=== PATIENT | female | born 1950 | race Caucasian/White ===

== ENCOUNTER 2017-07-20 15:58 | Inpatient (IN) | payer SELFPAY ==
[~2017-07-20] VITALS: Ht 152.4 cm; Wt 37.9 kg
[~2017-07-20 15:58] MED LIST: CALC600T44 PO; METH27 PO; OXYC40TA20; RALO1TAB13 PO; VITA20003 OR; [UNRECOGNIZED DRUG - CODE]
[2017-07-20 16:25] VITALS: BP 170/101; PULSE 98; RESP 20; TEMP 98.6; O2SAT 89
--- NOTE | 2017-07-20 16:29 | PD ---
HPI Chief Complaint: Respiratory Symptoms Time Seen by Provider: 16:14 Travel History International Travel<30 days: Yes Contact w/Intl Traveler<30days: Yes Traveled to known affect area: Yes History of Present Illness HPI This 66-year-old female is complaining of shortness of breath and edema. She says that for the past 2 weeks she has developed edema in her legs extending up into her abdomen. She says she's had some spells where she gets some tingling in her hands and then they turned blue. 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 She is currently confined to a wheelchair because of confusion of the bones of her knees. She says this bone disease showed up around 2006. She was evaluated at [facility] but says it was not able to do anything for her. She does smoke cigarettes. PFSH Past Medical History Arthritis: Yes Heart Rhythm Problems: Yes Cancer: No Cardiovascular Problems: No High Cholesterol: No Chest Pain: No Cerebrovascular Accident: No Endocrine: No Fibromyalgia: Yes Genitourinary: No Hepatitis: Yes (HEP C) Immune Disorder: No Musculoskeletal: Yes (SEVERE OSTEOPOROSIS/SCOLIOSIS/BONE DENSITY DISORDER) Neurologic: No Psychiatric: No Reproductive: No Respiratory: No Immunizations Current: Yes Migraines: No Seizures: Yes Menopausal: Yes Past Surgical History Abdominal Surgery: Yes (LIVER BIOPSY AND ERCP) Cardiac Surgery: No Ear Surgery: No Endocrine Surgery: No Eye Surgery: No Genitourinary Surgery: No Gynecologic Surgery: No Oral Surgery: No Thoracic Surgery: No Other Surgery: Yes (Procedures: Liver Biopsy & ERCP) Social History Alcohol Use: No Tobacco Use: Yes (1.5 ppd) Substance Use: No Allergies-Medications (Allergen,Severity, Reaction): Coded Allergies: cephalexin (Unverified Allergy, Severe, 06/21/17) acetaminophen (Unverified Adverse Reaction, Unknown, DOES NOT TAKE TYLENOL DUE TO HEPATITIS, 06/21/17) Reported Meds & Prescriptions Reported Meds & Active Scripts Active Reported Prolia Inj (Denosumab) 60 Mg/Ml Inj 60 Mg SQ 6 MONTHS Xtampza ER (Oxycodone) 27 Mg Cap 27 Mg PO TID Review of Systems General / Constitutional: No: Fever, Chills Eyes: No: Diploplia, Blurred Vision HENT: No: Headaches, Vertigo Cardiovascular: Positive: Edema, No: Chest Pain or Discomfort, Palpitations Respiratory: Positive: Shortness of Breath, No: Cough Gastrointestinal: No: Nausea, Vomiting Genitourinary: No: Urgency, Frequency Skin: No Rash, No Itching Neurologic: Positive: Weakness Endocrine: No: Heat Intolerance Hematologic/Lymphatic: No: Easy Bruising Physical Exam Narrative GENERAL: Very thin female. On arrival her O2 sat is 88% SKIN: Focused skin assessment warm/dry. HEAD: Atraumatic. Normocephalic. EYES: Pupils equal and round. No scleral icterus. No injection or drainage. ENT: No nasal bleeding or discharge. Mucous membranes pink and moist. NECK: Trachea midline. No JVD. CARDIOVASCULAR: Regular rate and rhythm. No murmur appreciated. RESPIRATORY: There is accessory muscle use. There are bibasilar rales GASTROINTESTINAL: Abdomen soft, non-tender, nondistended. Hepatic and splenic margins not palpable. MUSCULOSKELETAL: There are deformities of both arms. There are flexion deformities of the knees. There is edema of both legs extending up to the abdomen NEUROLOGICAL: Awake and alert. No obvious cranial nerve deficits. Motor grossly within normal limits. Normal speech. PSYCHIATRIC: Appropriate mood and affect; insight and judgment normal. Data Data Last Documented VS Vital Signs Date Time Temp Pulse Resp B/P (MAP) Pulse Ox O2 Delivery O2 Flow Rate FiO2 07/20/17 20:38 97.9 80 18 147/85 (105) 97 Nasal Cannula 2.00 Orders Orders Electrocardiogram (07/20/17 16:26) Complete Blood Count With Diff (07/20/17 16:26) Comprehensive Metabolic Panel (07/20/17 16:26) Troponin I (07/20/17 16:) B-Type Natriuretic Peptide (07/20/17 16:26) Prothrombin Time / Inr (Pt) (07/20/17 16:26) Act Partial Throm Time (Ptt) (07/20/17 16:26) Urinalysis - C+S If Indicated (07/20/17 16:26) D-Dimer (07/20/17 16:26) Magnesium (Mg) (07/20/17 16:26) Thyroid Stimulating Hormone (07/20/17 16:26) Chest, Single Ap (07/20/17 16:26) Bladder Scan PRN (07/20/17 16:33) Furosemide Inj (Lasix Inj) (07/20/17 17:30) Ct Pulmonary Angiogram (07/20/17 18:27) Urine Culture (07/20/17 18:50) Iohexol 350 Inj (Omnipaque 350 Inj) (07/20/17 20:34) Urinary Catheter Insert/Apply (07/20/17 21:28) Labs Laboratory Tests Test 07/20/17 16:30 07/20/17 17:10 07/20/17 18:50 White Blood Count 7.1 TH/MM3 Red Blood Count 4.54 MIL/MM3 Hemoglobin 10.9 GM/DL Hematocrit 34.9 % Mean Corpuscular Volume 76.9 FL Mean Corpuscular Hemoglobin 24.1 PG Mean Corpuscular Hemoglobin Concent 31.3 % Red Cell Distribution Width 18.8 % Platelet Count 224 TH/MM3 Mean Platelet Volume 7.9 FL Neutrophils (%) (Auto) 77.1 % Lymphocytes (%) (Auto) 12.5 % Monocytes (%) (Auto) 6.8 % Eosinophils (%) (Auto) 0.9 % Basophils (%) (Auto) 2.7 % Neutrophils # (Auto) 5.4 TH/MM3 Lymphocytes # (Auto) 0.9 TH/MM3 Monocytes # (Auto) 0.5 TH/MM3 Eosinophils # (Auto) 0.1 TH/MM3 Basophils # (Auto) 0.2 TH/MM3 CBC Comment AUTO DIFF Differential Comment AUTO DIFF CONFIRMED Target Cells 1+ Ovalocytes 1+ Stomatocytes 1+ Blood Urea Nitrogen 24 MG/DL Creatinine 0.90 MG/DL Random Glucose 93 MG/DL Total Protein 6.9 GM/DL Albumin 3.4 GM/DL Calcium Level 8.1 MG/DL Magnesium Level 2.2 MG/DL Alkaline Phosphatase 81 U/L Aspartate Amino Transf (AST/SGOT) 23 U/L Alanine Aminotransferase (ALT/SGPT) 17 U/L Total Bilirubin 0.3 MG/DL Sodium Level 134 MEQ/L Potassium Level 4.4 MEQ/L Chloride Level 96 MEQ/L Carbon Dioxide Level 32.4 MEQ/L Anion Gap 6 MEQ/L Estimat Glomerular Filtration Rate 63 ML/MIN Troponin I 0.02 NG/ML B-Type Natriuretic Peptide 1773 PG/ML Thyroid Stimulating Hormone 3rd Gen 3.200 uIU/ML Prothrombin Time 12.0 SEC Prothromb Time International Ratio 1.1 RATIO Activated Partial Thromboplast Time 25.3 SEC D-Dimer Quantitative (PE/DVT) 1.36 MG/L FEU Urine Color YELLOW Urine Turbidity CLEAR Urine pH 6.0 Urine Specific [place] 1.008 Urine Protein NEG mg/dL Urine Glucose (UA) NEG mg/dL Urine Ketones NEG mg/dL Urine Occult Blood NEG Urine Nitrite POS Urine Bilirubin NEG Urine Leukocyte Esterase NEG Urine RBC 0-3 /hpf Urine WBC 0-2 /hpf Urine Squamous Epithelial Cells 0-5 /hpf Urine Bacteria MANY /hpf Microscopic Urinalysis Comment CULTURE INDICATED MDM Medical Decision Making Medical Screen Exam Complete: Yes Emergency Medical Condition: Yes Medical Record Reviewed: Yes Differential Diagnosis Differential includes COPD, CHF, anasarca, cirrhosis, nephrotic syndrome Narrative Course Chest x-ray shows cardiomegaly and evidence of congestive failure. BNP is elevated at 1700. Albumin is 3.4. A d-dimer was ordered and is elevated so a DT a has been done. CTA is negative for pulmonary embolus is moderate emphysema with suspected pulmonary hypertension, bilateral pleural effusions and left ventricular hypertrophy with coronary artery calcification. Patient has been given Lasix 40 of Lasix and had a brisk diuresis. He does have a lot of healthy getting up and down to urinate and I have requested Jay catheter so we can monitor her output. This lady has onset of congestive failure of uncertain etiology Diagnosis Primary Impression: Congestive heart failure Qualified Codes: I50.9 - Heart failure, unspecified Admitting Information Admitting Physician Requests: Admit Hamilton Woodard MD Jul 20, 2017 16:29
[2017-07-20 16:47] LABS: AUTOMATED NEUTROPHIL # 5.4 TH/MM3 (1.8-7.7); BASOPHIL # 0.2 TH/MM3 (0-0.2); BASOPHIL % 2.7 % (0.0-2.0); EOSINOPHIL # 0.1 TH/MM3 (0-0.4); EOSINOPHIL % 0.9 % (0.0-4.0); HEMATOCRIT 34.9 % (35.0-46.0); LYMPH % 12.5 % (9.0-44.0); LYMPHOCYTE # 0.9 TH/MM3 (1.0-4.8); MEAN CELL VOLUME 76.9 FL (80.0-100.0); MEAN CORPUSCULAR HEMOGLOBIN 24.1 PG (27.0-34.0); MEAN CORPUSCULAR HGB CONC 31.3 % (32.0-36.0); MONO % 6.8 % (0.0-8.0); NEUT % 77.1 % (16.0-70.0); PLATELET COUNT 224 TH/MM3 (150-450); RED BLOOD COUNT 4.54 MIL/MM3 (4.00-5.30); RED CELL DISTRIBUTION WIDTH 18.8 % (11.6-17.2); WHITE BLOOD COUNT 7.1 TH/MM3 (4.0-11.0)
[2017-07-20 16:50] LABS: HEMO FLAGS AUTO DIFF
[2017-07-20 16:54] LABS: CHLORIDE 96 MEQ/L (98-107); POTASSIUM 4.4 MEQ/L (3.5-5.1); SODIUM (NA) 134 MEQ/L (136-145)
--- NOTE | 2017-07-20 16:54 | RADRPT ---
EXAM DATE/TIME: 07/20/2017 16:40 [facility] COMPARISON: No previous studies available for comparison. INDICATIONS : Short of breath. MEDICAL HISTORY : Scoliosis. SURGICAL HISTORY : None. ENCOUNTER: Initial ACUITY: 4 - 6 days PAIN SCORE: 0/10 LOCATION: Bilateral chest FINDINGS: Heart is enlarged mild interstitial edema and bibasilar partial changes worse in the right. No pleur al effusion. No pneumothorax. The portion of the bony skeleton visualized is unremarkable. CONCLUSION: Mild congestive failure bibasilar clinical changes. No pleural effusion. Cody Cardona MD FACR on July 20, 2017 at 16:52 Board Certified Radiologist. This report was verified electronically.
[2017-07-20 16:58] LABS: ANION GAP 6 MEQ/L (5-15); BICARBONATE 32.4 MEQ/L (21.0-32.0); BLOOD UREA NITROGEN 24 MG/DL (7-18); MAGNESIUM 2.2 MG/DL (1.5-2.5)
[2017-07-20 17:01] LABS: ALT (GPT) 17 U/L (10-53); AST (GOT) 23 U/L (15-37); GLOMERULAR FILTRATION RATE 63 ML/MIN (>89)
[2017-07-20 17:03] LABS: TOTAL BILIRUBIN ADULT 0.3 MG/DL (0.2-1.0)
[2017-07-20 17:04] LABS: ALKALINE PHOSPHATASE 81 U/L (45-117)
[2017-07-20 17:25] VITALS: BP 151/94; PULSE 93; RESP 20; O2SAT 94
[2017-07-20 17:27] LABS: OVALOCYTES 1+ (NORMAL); STOMATOCYTES 1+ (NORMAL); TARGET CELLS 1+ (NORMAL)
[2017-07-20 17:28] LABS: SCAN/DIFF AUTO DIFF CONFIRMED
[2017-07-20] MEDS ORDERED: FUROSEMIDE 40 MG/4 ML VIAL IV PUSH ONE (17:30)
[2017-07-20 18:01] LABS: APTT (PATIENT) 25.3 SEC (24.3-30.1); INTERNATIONAL NORMALIZED RATIO 1.1 RATIO
[2017-07-20] MEDS ORDERED: OXYC1CAP PO (18:01)
[2017-07-20] MEDS ORDERED: DENO60P SQ (18:01)
[2017-07-20 19:07] LABS: BLOOD, URINE NEG (NEG); GLUCOSE,URINE NEG (NEG); KETONE, URINE NEG (NEG); NITRITE,URINE POS (NEG)
[2017-07-20 19:14] LABS: URINE COLOR YELLOW (YELLW/STRAW)
[2017-07-20 19:15] LABS: BACTERIA, URINE MANY /hpf; COMMENT (UR) CULTURE INDICATED; CULTURE IF INDICATED CULTURE INDICATED; RBC, URINE 0-3 /hpf (0-3); SQUAMOUS EPITHELIAL CELL URINE 0-5 /hpf (0-5); WBC, URINE 0-2 /hpf (0-5)
[2017-07-20 19:27] VITALS: BP 184/107; PULSE 90; RESP 18; O2SAT 100
[2017-07-20] MEDS ORDERED: IOHEXOL 350 MG/ML 10 ML VIAL (for RAD DIAG) IVCONTRAST ONE (20:34)
[2017-07-20 20:38] VITALS: BP 147/85; PULSE 80; RESP 18; TEMP 97.9; O2SAT 97
--- NOTE | 2017-07-20 20:51 | RADRPT ---
EXAM DATE/TIME: 07/20/2017 20:23 [facility] COMPARISON: No previous studies available for comparison. INDICATIONS : Shortness of breath with elevated D-dimer. IV CONTRAST: 60 cc Omnipaque 350 (iohexol) IV RADIATION DOSE: 5.42 CTDIvol (mGy) MEDICAL HISTORY : Hepatitis C. Osteoporosis. SURGICAL HISTORY : None. ENCOUNTER: Initial ACUITY: 1 day PAIN SCALE: 0/10 LOCATION: chest TECHNIQUE: Volumetric scanning of the chest was performed using a pulmonary embolism protocol MIP images were re constructed. Using automated exposure control and adjustment of the mA and/or kV according to patien t size, radiation dose was kept as low as reasonably achievable to obtain optimal diagnostic quality images. DICOM format image data is available electronically for review and comparison. Follow-up recommendations for detected pulmonary nodules are based at a minimum on nodule size and pa tient risk factors according to Fleischner Society Guidelines. FINDINGS: There is no pulmonary embolus. Main pulmonary artery is distended, measures approximately 3.9 cm. Left ventricular hypertrophy noted. Coronary artery calcification seen focally of the right coronary and proximal LAD. Moderate emphysema. Moderate right and [id number] left pleural effusions are present with mild dependent/compressive atelectasis of the bases. CONCLUSION: 1. No pulmonary embolus. 2. Moderate emphysema with suspected pulmonary hypertension. The central pulmonary arteries are diste nded. 3. Bilateral pleural effusions. 4. Left ventricular hypertrophy. Coronary artery calcification. Ross Arias MD on July 20, 2017 at 20:47 Board Certified Radiologist. This report was verified electronically.
[2017-07-20 21:45] VITALS: BP 132/82; PULSE 78; RESP 17; O2SAT 96
[2017-07-20] MEDS ORDERED: NALOXONE HCL 0.4 MG/ML AMP IV PUSH PRN (21:45)
[2017-07-20] MEDS ORDERED: SODIUM CHLORIDE 0.9% FLUSH 10 ML FLUSH IV FLUSH PRN (21:45)
[2017-07-20] MEDS ORDERED: NICOTINE 21 MG/24 HR PATCH T-DERMAL ONE (21:45)
[2017-07-20] MEDS ORDERED: OXYC1CAP8 PO (22:43)
[2017-07-20] MEDS ORDERED: OXYC30TA PO (22:43)
[2017-07-20] MEDS ORDERED: OXYM30TA4 PO (22:43)
[2017-07-20] MEDS ORDERED: ASPI-383 PO (22:43)
[2017-07-20 23:45] VITALS: BP 182/112; PULSE 80; RESP 16; TEMP 97.7; O2SAT 97
[2017-07-21] VITALS (10 sets, daily range): BP systolic 131–161; BP diastolic 87–103; PULSE 87–106; RESP 16–21; TEMP 97.8–99; O2SAT 92–100
[2017-07-21 05:33] LABS: AUTOMATED NEUTROPHIL # 5.5 TH/MM3 (1.8-7.7); BASOPHIL # 0.1 TH/MM3 (0-0.2); BASOPHIL % 0.8 % (0.0-2.0); EOSINOPHIL # 0.1 TH/MM3 (0-0.4); EOSINOPHIL % 1.7 % (0.0-4.0); HEMATOCRIT 36.2 % (35.0-46.0); LYMPH % 12.7 % (9.0-44.0); LYMPHOCYTE # 0.9 TH/MM3 (1.0-4.8); MEAN CELL VOLUME 78.4 FL (80.0-100.0); MEAN CORPUSCULAR HEMOGLOBIN 24.4 PG (27.0-34.0); MEAN CORPUSCULAR HGB CONC 31.2 % (32.0-36.0); MONO % 8.5 % (0.0-8.0); NEUT % 76.3 % (16.0-70.0); PLATELET COUNT 188 TH/MM3 (150-450); RED BLOOD COUNT 4.62 MIL/MM3 (4.00-5.30); RED CELL DISTRIBUTION WIDTH 18.9 % (11.6-17.2); WHITE BLOOD COUNT 7.2 TH/MM3 (4.0-11.0)
[2017-07-21 05:42] LABS: HEMO FLAGS AUTO DIFF
[2017-07-21 05:51] LABS: BICARBONATE 39.2 MEQ/L (21.0-32.0); POTASSIUM 3.6 MEQ/L (3.5-5.1)
[2017-07-21 05:55] LABS: PLATELET ESTIMATE SMEAR NORMAL (NORMAL); PLATELET MORPHOLOGY NORMAL (NORMAL); SCAN/DIFF AUTO DIFF CONFIRMED
[2017-07-21] MEDS: FUROSEMIDE 40 MG/4 ML VIAL IV PUSH SCH ×3 (08:24→17:54)
[2017-07-21] MEDS: SODIUM CHLORIDE 0.9% FLUSH 10 ML FLUSH IV FLUSH SCH ×2 (08:24→20:16)
[2017-07-21] MEDS ORDERED: OXYCODONE PO SCH ×2 (09:46→13:00)
[2017-07-21] MEDS ORDERED: OXYCODONE PO ONE (10:45)
--- NOTE | 2017-07-21 10:47 | ECHRPT ---
Indication: CHF CONCLUSIONS The left ventricular systolic function is normal with an estimated ejection fraction in the range of 55-60%. Normal left ventricular size. Mild concentric left ventricular hypertrophy. No regional wall motion abnormalities are present. The right ventricle is moderately dilated. The right atrial size is moderately dilated. Mild thickening of the mitral valve leaflets. Aortic valve sclerosis is present. There is mild to moderate tricuspid valve regurgitation. The estimated pulmonary arterial pressure is 47 mmHg. BP: 133 / 88 HR: 103 Rhythm: Sinus MEASUREMENTS (Male / Female) Normal Values Technical Quality:Good 2D ECHO LV Diastolic Diameter PLAX 3.7 cm 4.2 - 5.9 / 3.9 - 5.3 cm LV Systolic Diameter PLAX 2.6 cm IVS Diastolic Thickness 1.2 cm 0.6 - 1.0 / 0.6 - 0.9 cm LVPW Diastolic Thickness 1.2 cm 0.6 - 1.0 / 0.6 - 0.9 cm LV Relative Wall Thickness 0.7 RV Internal Dim ED PLAX 3.6 cm LVOT Diameter 1.7 cm LA Systolic Diameter LX 3.4 cm 3.0 - 4.0 / 2.7 - 3.8 cm M-MODE Aortic Root Diameter MM 2.5 cm AV Cusp Separation MM 1.8 cm DOPPLER AV Peak Velocity 140.0 cm/s AV Peak Gradient 7.8 mmHg LVOT Peak Velocity 105.0 cm/s LVOT Peak Gradient 4.4 mmHg AV Area Cont Eq pk 1.7 cm MV Peak Velocity 131.0 cm/s MV Peak Gradient 6.9 mmHg MV Mean Velocity 70.1 cm/s MV Mean Gradient 2.0 mmHg MV Area PHT 5.8 cm Mitral E Point Velocity 64.7 cm/s Mitral A Point Velocity 102.0 cm/s Mitral E to A Ratio 0.6 TR Peak Velocity 314.0 cm/s TR Peak Gradient 39.4 mmHg PV Peak Velocity 70.6 cm/s PV Peak Gradient 2.0 mmHg FINDINGS LEFT VENTRICLE The left ventricular systolic function is normal with an estimated ejection fraction in the range of 55-60%. Normal left ventricular size. Mild concentric left ventricular hypertrophy. No regional wall motion abnormalities are present. RIGHT VENTRICLE The right ventricle is moderately dilated. LEFT ATRIUM The left atrial size is normal. RIGHT ATRIUM The right atrial size is moderately dilated. ATRIAL SEPTUM Normal atrial septal thickness without atrial level shunting by limited color doppler interrogation. AORTA The aortic root and proximal ascending aorta are normal in size on limited imaging. MITRAL VALVE Mild thickening of the mitral valve leaflets. AORTIC VALVE Trileaflet aortic valve. Aortic valve sclerosis is present. TRICUSPID VALVE Structurally normal tricuspid valve. There is mild to moderate tricuspid valve regurgitation. The estimated pulmonary arterial pressure is 47 mmHg. PULMONARY VALVE The pulmonary valve is not well visualized. VESSELS The inferior vena cava is normal in size. PERICARDIUM No pericardial effusion. Beka Kincaid MD (Electronically Signed) Final Date:21 July 2017 10:46
--- NOTE | 2017-07-21 13:18 | HHI.HP ---
[facility] Service [facility] Primary Care Physician No Primary Care Physician Admission Diagnosis CHF, NEW ONSET, HYPOXIA Diagnoses: (1) Elevated brain natriuretic peptide (BNP) level Diagnosis: Principal (2) Lower extremity edema Diagnosis: Principal (3) Shortness of breath Diagnosis: Principal Chief Complaint: Lower extremity edema, shortness of breath Travel History International Travel<30 Days: No Contact w/Intl Traveler <30 Da: No Traveled to Known Affected Are: No History of Present Illness Written by Renan Toribio, acting as scribe for Dr. Reynolds on 07/21/17 at 13: 05. 66-year-old rather unfortunate female with significant degenerative bone disease , fibromyalgia, arthritis, osteoporosis, history of hepatitis C, history seizures who presented to hospital because of lower extremity edema and shortness of breath. Patient denies any underlying cardiac disease. She states that about a month ago she had an episode where she had lower extremity swelling but it went away on its own. Then 2 weeks ago she started developing lower extremity edema and they continue to worsen up until she had swelling into her abdomen. She started having shortness of breath and difficulty breathing. Could not discern if she has any dyspnea. Patient is confined to wheelchair due to her muscle skeletal, deconditioning state. Patient does have chronic pain is on high doses of narcotic pain medication and is demanding that her pain medication be resumed so she can continue to talk. Patient denies any chest pain, diaphoresis, lightheadedness, dizziness. Patient denies any previous diagnosis of congestive heart failure. She has never had any cardiac workup or ventilator manager council for evaluation. Patient had workup done emergency department and bony angiogram was performed which did not indicate any pulmonary emboli, does show moderate emphysema with suspected pulmonary hypertension. There is central coronary artery distended. Bilateral pleural effusions. Chest x-ray does show congestive failure bibasilar. Patient did have an elevated BNP, on presentation patient did have O2 saturation 89%, patient was placed on oxygen with improvement of her O2 saturations. It was recommended by ER physician that the patient be admitted for further evaluation and management. At the time evaluating the patient today. She states that her swelling and shortness of breath has significantly improved. She is having difficulty urinating because she cannot get out of bed to use the bedside commode because she is in too much pain. Patient deferred Jay placement for monitoring of fluid balance. Review of Systems Respiratory: COMPLAINS OF: Shortness of breath Cardiovascular: COMPLAINS OF: Lower Extremity Edema Musculoskeletal: COMPLAINS OF: Joint pain, Joint Swelling, Back pain Except as stated in HPI: all other systems reviewed are Neg Past Family Social History Past Medical History Chronic pain Arthritis Fibromyalgia History of hepatitis C, treated in 1999, Severe osteoporosis Scoliosis Chronic tobacco use History of seizures Past Surgical History Liver biopsy Reported Medications Reported Meds & Active Scripts Active Reported Bufferin 325 mg Tablet (Aspirin/Calcium Carbonate/Mag) 325 Mg Tablet 325 Mg PO DAILY Prolia Inj (Denosumab) 60 Mg/Ml Inj 60 Mg SQ 6 MONTHS Xtampza ER (Oxycodone) 27 Mg Cap 27 Mg PO TID Allergies: Coded Allergies: cephalexin (Unverified Allergy, Severe, 07/20/17) acetaminophen (Unverified Adverse Reaction, Unknown, DOES NOT TAKE TYLENOL DUE TO HEPATITIS, 07/20/17) Family History Reviewed is significant for father at age 65 with heart disease, mother at age 83 from old age. She did have bladder cancer Social History Patient still smokes 1-1/2 pack a cigarettes a day since she was 20 years old. Denies any alcohol or illicit drugs Physical Exam Vital Signs Vital Signs Date Time Temp Pulse Resp B/P (MAP) Pulse Ox O2 Delivery O2 Flow Rate FiO2 07/21/17 12:00 98.4 95 21 134/87 (103) 95 07/21/17 08:20 92 Nasal Cannula 2.00 07/21/17 08:00 97.8 88 20 133/88 (103) 97 07/21/17 05:12 92 Nasal Cannula 2.00 07/21/17 04:00 98.7 89 20 131/88 (102) 92 07/21/17 02:53 20 07/20/17 23:45 97.7 80 16 182/112 (135) 97 07/20/17 23:33 07/20/17 21:45 78 17 132/82 (99) 96 Room Air 2.00 07/20/17 20:38 97.9 80 18 147/85 (105) 97 Nasal Cannula 2.00 07/20/17 19:27 90 18 184/107 (132) 100 Room Air 07/20/17 17:25 93 20 151/94 (113) 94 Nasal Cannula 2.00 07/20/17 16:30 92 Nasal Cannula 3.00 07/20/17 16:25 98.6 98 20 170/101 (124) 89 Physical Exam GENERAL: Well-developed, frail and cachectic, in no acute distress. alert and orientated HEENT: Head is normocephalic without any lesions or masses noted. Facial features are symmetric. Eyes: Pupils equal round reactive to light. Extraocular muscles are intact. Conjunctivae were clear. Oropharyngeal: Pharynx without any erythema edema. Tongue is midline without deviation. Buccal mucosa is moist without any masses or lesions NECK: Supple without any masses. Trachea midline no deviation. No JVD, no bruits are appreciated CARDIAC: Regular rhythm, regular rate. S1/S2 are heard. No murmurs gallops or rubs. LUNGS: Clear to auscultation bilaterally. No wheeze, rhonchi or rales. No use of accessory muscles on inspiration or expiration. ABDOMEN: Soft, nontender. Nondistended. Bowel sounds heard in all 4 quadrants. No organomegaly or masses. Negative rebound, negative guarding EXTREMITIES: Trace of pitting edema noted in the bilateral lower extremities, pulses are equal bilaterally. No cyanosis or clubbing. Patient with obvious bony abnormalities of the bilateral upper extremities. NEUROLOGY: Mood and affect appear appropriate. Cranial nerves II through XII grossly intact. Muscle strength 5/5 in upper and lower extremities bilaterally. Deep tendon reflexes are 2+ in upper and lower extremities bilaterally. Laboratory Laboratory Tests Test 07/20/17 16:30 07/20/17 17:10 07/20/17 18:50 07/20/17 22:35 White Blood Count 7.1 Red Blood Count 4.54 Hemoglobin 10.9 Hematocrit 34.9 Mean Corpuscular Volume 76.9 Mean Corpuscular Hemoglobin 24.1 Mean Corpuscular Hemoglobin Concent 31.3 Red Cell Distribution Width 18.8 Platelet Count 224 Mean Platelet Volume 7.9 Neutrophils (%) (Auto) 77.1 Lymphocytes (%) (Auto) 12.5 Monocytes (%) (Auto) 6.8 Eosinophils (%) (Auto) 0.9 Basophils (%) (Auto) 2.7 Neutrophils # (Auto) 5.4 Lymphocytes # (Auto) 0.9 Monocytes # (Auto) 0.5 Eosinophils # (Auto) 0.1 Basophils # (Auto) 0.2 CBC Comment AUTO DIFF Differential Comment AUTO DIFF CONFIRMED Target Cells 1+ Ovalocytes 1+ Stomatocytes 1+ Blood Urea Nitrogen 24 Creatinine 0.90 Random Glucose 93 Total Protein 6.9 Albumin 3.4 Calcium Level 8.1 Magnesium Level 2.2 Alkaline Phosphatase 81 Aspartate Amino Transf (AST/SGOT) 23 Alanine Aminotransferase (ALT/SGPT) 17 Total Bilirubin 0.3 Sodium Level 134 Potassium Level 4.4 Chloride Level 96 Carbon Dioxide Level 32.4 Anion Gap 6 Estimat Glomerular Filtration Rate 63 Troponin I 0.02 0.03 B-Type Natriuretic Peptide 1773 Thyroid Stimulating Hormone 3rd Gen 3.200 Prothrombin Time 12.0 Prothromb Time International Ratio 1.1 Activated Partial Thromboplast Time 25.3 D-Dimer Quantitative (PE/DVT) 1.36 Urine Color YELLOW Urine Turbidity CLEAR Urine pH 6.0 Urine Specific [place] 1.008 Urine Protein NEG Urine Glucose (UA) NEG Urine Ketones NEG Urine Occult Blood NEG Urine Nitrite POS Urine Bilirubin NEG Urine Leukocyte Esterase NEG Urine RBC 0-3 Urine WBC 0-2 Urine Squamous Epithelial Cells 0-5 Urine Bacteria MANY Microscopic Urinalysis Comment CULTURE INDICATED Total Creatine Kinase 127 Test 07/21/17 04:20 White Blood Count 7.2 Red Blood Count 4.62 Hemoglobin 11.3 Hematocrit 36.2 Mean Corpuscular Volume 78.4 Mean Corpuscular Hemoglobin 24.4 Mean Corpuscular Hemoglobin Concent 31.2 Red Cell Distribution Width 18.9 Platelet Count 188 Mean Platelet Volume 7.7 Neutrophils (%) (Auto) 76.3 Lymphocytes (%) (Auto) 12.7 Monocytes (%) (Auto) 8.5 Eosinophils (%) (Auto) 1.7 Basophils (%) (Auto) 0.8 Neutrophils # (Auto) 5.5 Lymphocytes # (Auto) 0.9 Monocytes # (Auto) 0.6 Eosinophils # (Auto) 0.1 Basophils # (Auto) 0.1 CBC Comment AUTO DIFF Differential Comment AUTO DIFF CONFIRMED Platelet Estimate NORMAL Platelet Morphology Comment NORMAL Blood Urea Nitrogen 22 Creatinine 0.86 Random Glucose 75 Calcium Level 7.8 Sodium Level 140 Potassium Level 3.6 Chloride Level 96 Carbon Dioxide Level 39.2 Anion Gap 5 Estimat Glomerular Filtration Rate 66 Total Creatine Kinase 108 Troponin I 0.03 Date/Time Source Procedure Growth Status 07/20/17 18:50 Urine Clean Catch Urine Culture Pending Received Result Diagram: 07/21/1741907/21/[address] Angiography 07/20/171826 Signed Impressions: Service Date/Time: Thursday, July 20, 2017 20:23 - CONCLUSION: 1. No pulmonary embolus. 2. Moderate emphysema with suspected pulmonary hypertension. The central pulmonary arteries are distended. 3. Bilateral pleural effusions. 4. Left ventricular hypertrophy. Coronary artery calcification. Ross Arias MD Chest X-Ray 07/20/17 1626 Signed Impressions: Service Date/Time: Thursday, July 20, 2017 16:40 - CONCLUSION: Mild congestive failure bibasilar clinical changes. No pleural effusion. Cody Cardona MD FACR Caprini VTE Risk Assessment Caprini VTE Risk Assessment: Mod/High Risk (score >= 2) Caprini Risk Assessment Model Point Value = 1 Point Value = 2 Point Value = 3 Point Value = 5 Age 41-60 Minor surgery BMI > 25 kg/m2 Swollen legs Varicose veins or History of unexplained or recurrent spontaneous Oral contraceptives or hormone replacement Sepsis (< 1 month) Serious lung disease, including pneumonia (< 1 month) Abnormal pulmonary function Acute myocardial infarction Congestive heart failure (< 1 month) History of inflammatory bowel disease Medical patient at bed rest Age 61-74 Arthroscopic surgery Major open surgery (> 45 min) Laparoscopic surgery (> 45 min) Malignancy Confined to bed (> 72 hours) Immobilizing plaster cast Central venous access Age >= 75 History of VTE Family history of VTE Factor V Leiden Prothrombin [id number] Lupus anticoagulant Anticardiolipin antibodies Elevated serum homocysteine Heparin-induced thrombocytopenia Other congenital or acquired thrombophilia Stroke (< 1 month) Elective arthroplasty Hip, pelvis, or leg fracture Acute spinal cord injury (< 1 month) Prophylaxis Regimen Total Risk Factor Score Risk Level Prophylaxis Regimen 0-1 Low Early ambulation 2 Moderate Order ONE of the following: *Sequential Compression Device (SCD) *Heparin 5000 units SQ BID 3-4 Higher Order ONE of the following medications: *Heparin 5000 units SQ TID *Enoxaparin/Lovenox 40 mg SQ daily (WT < 150 kg, CrCl > 30 mL/min) *Enoxaparin/Lovenox 30 mg SQ daily (WT < 150 kg, CrCl > 10-29 mL/min) *Enoxaparin/Lovenox 30 mg SQ BID (WT < 150 kg, CrCl > 30 mL/min) AND/OR *Sequential Compression Device (SCD) 5 or more Highest Order ONE of the following medications: *Heparin 5000 units SQ TID (Preferred with Epidurals) *Enoxaparin/Lovenox 40 mg SQ daily (WT < 150 kg, CrCl > 30 mL/min) *Enoxaparin/Lovenox 30 mg SQ daily (WT < 150 kg, CrCl > 10-29 mL/min) *Enoxaparin/Lovenox 30 mg SQ BID (WT < 150 kg, CrCl > 30 mL/min) AND *Sequential Compression Device (SCD) Assessment and Plan Problem List: (1) Congestive heart failure ICD Code: I50.9 - Heart failure, unspecified Status: Acute Plan: 66-year-old female who presented to hospital with symptoms of congestive heart failure to include shortness of breath and lower extremity edema. Patient had workup done in the emergency department to include laboratory studies with elevated BNP, chest x-ray and CT scan showing congestive heart failure, pleural effusions. Patient has been ruled out for acute cardiac injury with serial cardiac enzymes remain negative. However, Serial EKGs shows sinus rhythm, right axis deviation, anterior myocardial infarctionacute [place] . Patient was admitted with Lasix 40 mg IV 1, patient refused further Lasix. Echocardiogram was performed which does show normal systolic function with ejection fraction 55% to 60%, right atrial and right ventricle mildly dilated. Thickening of the mitral valve leaflets, aortic valve sclerosis is present. Mild to moderate tricuspid valve regurgitation. Cardiology consulted, awaiting the recommendations. We'll need to start aspirin , Nitropaste, REI inhibitor, beta gideon, statin for cardiac protection, check lipid panel, Assessment and Plan Patient's other chronic medical illnesses to include chronic back pain, fibromyalgia, degenerative osteoporosis: We'll continue her home medications for pain control Chronic tobacco use: Patient was given nicotine patch. Patient counseled on cessation. CT scan does show moderate emphysema as well as laboratory studies show CO2 retention as well as borderline hypoxia DVT prevention: We'll start subcutaneous heparin Physician Certification 2 Midnight Certification Type: Admission for Inpatient Services Order for Inpatient Services The services are ordered in accordance with Medicare regulations or non- Medicare payer requirements, as applicable. In the case of services not specified as inpatient-only, they are appropriately provided as inpatient services in accordance with the 2-midnight benchmark. Estimated LOS (days): 3 days is the estimated time the patient will need to remain in the hospital, assuming treatment plan goals are met and no additional complications. Post-Hospital Plan: Not yet determined Medical Decision Making Impression and Plan This note was transcribed by maximus chamberlain I, Dr. Latia Reynolds personally performed the history, physical exam, and medical decision making; and confirmed the accuracy of the information in the transcribed note. Authenticated by Dr. Latia Reynolds on 07/21/17 at 13:59. Patient seen and evaluated again and echocardiogram studies discussed with patient. Patient has emphysema with probable some restrictive component given her musculoskeletal disease. Patient is hypoxemic with sats as low as 75% on room air. She does recover somewhat with oxygen at 3-4 L. Her right sided heart failure is most likely due to long-standing respiratory disease/emphysema. Problem Qualifiers (1) Congestive heart failure: Qualified Codes: I50.9 - Heart failure, unspecified Renan Toribio Jul 21, 2017 13:18 Latia Reynolds MD Jul 21, 2017 14:00
[2017-07-21] MEDS: METOPROLOL TARTRATE 25 MG TAB PO SCH ×2 (13:30→20:17)
[2017-07-21] MEDS: ATORVASTATIN 10 MG TAB PO SCH (13:30)
[2017-07-21] MEDS: NITROGLYCERIN 2% OINT 1 GM PACKET TOPICAL SCH ×3 (13:30→20:18)
[2017-07-21] MEDS: LISINOPRIL 10 MG TAB PO SCH (13:30)
[2017-07-21] MEDS ORDERED: PATIENT OWN NARCOTIC MED 1 PO SCH (14:00)
[2017-07-21] MEDS ORDERED: PILL SPLITTER OTHER PRN (14:45)
[2017-07-21] MEDS: ASPIRIN EC 325 MG TABEC PO SCH (15:02)
[2017-07-21] MEDS: HEPARIN SODIUM - SQ 10,000 UNITS/ML VIAL SQ SCH ×2 (15:03→20:18)
[2017-07-21 17:05] LABS: HDL CHOLESTEROL 58.7 MG/DL (40.0-60.0)
--- NOTE | 2017-07-21 17:57 | EKG ---
Date Performed: 07/20/2017 Time Performed: 16:06:38 PTAGE: 66 years EKG: Sinus rhythm WITH SHORT [place] INTERVAL AXIS RIGHTWARD LEFT ATRIAL ABNORMALITY POOR R- WAVE PROGRESSION ACROSS PERCO RDIUM WHICH MAYBE DUE TO AXIS DEVIATION. SINCE PREVIOUS TRACING 12/25/2010, AXIS IS MORE RIGHTWARD. PREVIOUS TRACIN12/25/2010 10.41 DOCTOR: Winston Freeman Interpretating Date/Time 07/21/2017 17:56:52
--- NOTE | 2017-07-21 17:57 | EKG ---
Date Performed: 07/20/2017 Time Performed: 22:47:59 PTAGE: 66 years EKG: Sinus rhythm POSSIBLE LEFT ATRIAL ENLARGEMENT MARKED RIGHT AXIS DEVIATION LOW QRS VOLTAGE IN EXTREMITY LEADS MINI MAL ST DEPRESSION Compared to prior tracing no significant change ABNORMAL ECG PREVIOUS TRACING : 07/20/2017 16.06 DOCTOR: Winston Freeman Interpretating Date/Time 07/21/2017 17:57:34
--- NOTE | 2017-07-21 18:01 | EKG ---
Date Performed: 07/21/2017 Time Performed: 04:53:56 PTAGE: 66 years EKG: Sinus rhythm RIGHT AXIS DEVIATION SHORT ID INTERVAL LOW LIMB LEAD VOLTAGE MINOR NONSPECIFIC ST-T CHANGE Compared to prior tracing no significant change PREVIOUS TRACING : 07/20/2017 22.47 DOCTOR: Winston Freeman Interpretating Date/Time 07/21/2017 18:00:03
[2017-07-21] MEDS ORDERED: RESP: ALBUTEROL 2.5 MG/IPRATROPIUM 0.5 MG NEB (PRN) NEB (18:15)
[2017-07-21] MEDS: NICOTINE 14 MG/24 HR PATCH T-DERMAL SCH (18:36)
[2017-07-21 19:16] LABS: BLOOD GAS BASE EXCESS 14.5 mmol/L (-2-2); BLOOD GAS CARBOXYHEMOGLOBIN 3.5 % (0-4); BLOOD GAS HCO3 40 mmol/L (22-26); BLOOD GAS METHEMOGLOBIN 0.9 % (0-2); BLOOD GAS O2 HGB SATURATION 69 % (90-100); BLOOD GAS OXYGEN CONTENT 10.9 Vol % (12.0-20.0); BLOOD GAS PCO2 62 mmHG (38-42); BLOOD GAS PO2 42 mmHG (61-120); BLOOD GAS TOTAL HGB 11.3 G/DL (12.0-16.0); CRITICAL VALUE YES; DRAW SITE RT RADIAL; NUMBER OF ARTERIAL PUNCTURES 1; STAT NO; TEMP CORR TO 98.6; ULNAR PULSE Y
[2017-07-21 19:17] LABS: FIO2 21 %
[2017-07-21] MEDS: RESP: ALBUTEROL 2.5 MG/IPRATROPIUM 0.5 MG NEB (SCH) NEB (19:41)
[2017-07-21] MEDS: OXYCODONE PO SCH (20:16)
[2017-07-22] VITALS (8 sets, daily range): BP systolic 120–194; BP diastolic 81–111; PULSE 77–103; RESP 20–22; TEMP 97–98.7; O2SAT 91–98
[2017-07-22] MEDS: NITROGLYCERIN 2% OINT 1 GM PACKET TOPICAL SCH ×4 (05:29→23:06)
[2017-07-22] MEDS: RESP: ALBUTEROL 2.5 MG/IPRATROPIUM 0.5 MG NEB (SCH) NEB ×3 (07:46→19:30)
[2017-07-22] MEDS: LISINOPRIL 10 MG TAB PO SCH (09:00)
[2017-07-22] MEDS: SODIUM CHLORIDE 0.9% FLUSH 10 ML FLUSH IV FLUSH SCH ×2 (09:00→20:24)
[2017-07-22] MEDS: REMOVE OLD PATCH T-DERMAL SCH ×2 (09:00→09:41)
[2017-07-22] MEDS: FUROSEMIDE 40 MG/4 ML VIAL IV PUSH SCH ×2 (09:41→19:18)
[2017-07-22] MEDS: ASPIRIN EC 325 MG TABEC PO SCH (09:41)
[2017-07-22] MEDS: HEPARIN SODIUM - SQ 10,000 UNITS/ML VIAL SQ SCH ×2 (09:42→20:26)
[2017-07-22] MEDS: NICOTINE 14 MG/24 HR PATCH T-DERMAL SCH (09:43)
[2017-07-22] MEDS: ATORVASTATIN 10 MG TAB PO SCH (09:43)
[2017-07-22] MEDS: OXYCODONE PO SCH ×2 (09:44→20:24)
[2017-07-22] MEDS: METOPROLOL TARTRATE 25 MG TAB PO SCH ×2 (10:00→20:28)
--- NOTE | 2017-07-22 12:00 | HHI.DS ---
Discharge Summary Admission Date Jul 20, 2017 at 21:38 Discharge Date: Jul 22, 2017 Admitting Diagnosis CHF, NEW ONSET, HYPOXIA (1) Congestive heart failure ICD Code: I50.9 - Heart failure, unspecified Status: Acute Procedures pft Brief History - From Admission Written by Renan Toribio, acting as scribe for Dr. Reynolds on 07/21/17 at 13: 05. 66-year-old rather unfortunate female with significant degenerative bone disease , fibromyalgia, arthritis, osteoporosis, history of hepatitis C, history seizures who presented to hospital because of lower extremity edema and shortness of breath. Patient denies any underlying cardiac disease. She states that about a month ago she had an episode where she had lower extremity swelling but it went away on its own. Then 2 weeks ago she started developing lower extremity edema and they continue to worsen up until she had swelling into her abdomen. She started having shortness of breath and difficulty breathing. Could not discern if she has any dyspnea. Patient is confined to wheelchair due to her muscle skeletal, deconditioning state. Patient does have chronic pain is on high doses of narcotic pain medication and is demanding that her pain medication be resumed so she can continue to talk. Patient denies any chest pain, diaphoresis, lightheadedness, dizziness. Patient denies any previous diagnosis of congestive heart failure. She has never had any cardiac workup or ventilator criminal justice social worker for evaluation. Patient had workup done emergency department and bony angiogram was performed which did not indicate any pulmonary emboli, does show moderate emphysema with suspected pulmonary hypertension. There is central coronary artery distended. Bilateral pleural effusions. Chest x-ray does show congestive failure bibasilar. Patient did have an elevated BNP, on presentation patient did have O2 saturation 89%, patient was placed on oxygen with improvement of her O2 saturations. It was recommended by ER physician that the patient be admitted for further evaluation and management. At the time evaluating the patient today. She states that her swelling and shortness of breath has significantly improved. She is having difficulty urinating because she cannot get out of bed to use the bedside commode because she is in too much pain. Patient deferred Jay placement for monitoring of fluid balance. CBC/BMP: 07/21/17 0420 07/21/17 0420 Significant Findings Laboratory Tests Test 07/20/17 16:30 07/20/17 17:10 07/20/17 18:50 07/20/17 22:35 Hemoglobin 10.9 GM/DL (11.6-15.3) Hematocrit 34.9 % (35.0-46.0) Mean Corpuscular Volume 76.9 FL (80.0-100.0) Mean Corpuscular Hemoglobin 24.1 PG (27.0-34.0) Mean Corpuscular Hemoglobin Concent 31.3 % (32.0-36.0) Red Cell Distribution Width 18.8 % (11.6-17.2) Neutrophils (%) (Auto) 77.1 % (16.0-70.0) Basophils (%) (Auto) 2.7 % (0.0-2.0) Lymphocytes # (Auto) 0.9 TH/MM3 (1.0-4.8) Target Cells 1+ (NORMAL) Ovalocytes 1+ (NORMAL) Stomatocytes 1+ (NORMAL) Blood Urea Nitrogen 24 MG/DL (7-18) Calcium Level 8.1 MG/DL (8.5-10.1) Sodium Level 134 MEQ/L (136-145) Chloride Level 96 MEQ/L (98-107) Carbon Dioxide Level 32.4 MEQ/L (21.0-32.0) Estimat Glomerular Filtration Rate 63 ML/MIN (>89) B-Type Natriuretic Peptide 1773 PG/ML (0-100) Prothrombin Time 12.0 SEC (9.8-11.6) D-Dimer Quantitative (PE/DVT) 1.36 MG/L FEU (0.00-0.50) Urine Nitrite POS (NEG) Urine Bacteria MANY /hpf (NONE) Test 07/21/17 04:20 07/21/17 19:10 Hemoglobin 11.3 GM/DL (11.6-15.3) Mean Corpuscular Volume 78.4 FL (80.0-100.0) Mean Corpuscular Hemoglobin 24.4 PG (27.0-34.0) Mean Corpuscular Hemoglobin Concent 31.2 % (32.0-36.0) Red Cell Distribution Width 18.9 % (11.6-17.2) Neutrophils (%) (Auto) 76.3 % (16.0-70.0) Monocytes (%) (Auto) 8.5 % (0.0-8.0) Lymphocytes # (Auto) 0.9 TH/MM3 (1.0-4.8) Blood Urea Nitrogen 22 MG/DL (7-18) Calcium Level 7.8 MG/DL (8.5-10.1) Chloride Level 96 MEQ/L (98-107) Carbon Dioxide Level 39.2 MEQ/L (21.0-32.0) Estimat Glomerular Filtration Rate 66 ML/MIN (>89) Blood Gas HCO3 40 mmol/L (22-26) Blood Gas Base Excess 14.5 mmol/L (-2-2) Blood Gas Oxygen Saturation 69 % (90-100) Arterial Blood Partial Pressure CO2 62 mmHG (38-42) Arterial Blood Partial Pressure O2 42 mmHG (61-120) Arterial Blood Oxygen Content 10.9 Vol % (12.0-20.0) Blood Gas Hemoglobin 11.3 G/DL (12.0-16.0) Imaging Last Impressions CT Angiography 07/20/17 1827 Signed Impressions: Service Date/Time: Thursday, July 20, 2017 20:23 - CONCLUSION: 1. No pulmonary embolus. 2. Moderate emphysema with suspected pulmonary hypertension. The central pulmonary arteries are distended. 3. Bilateral pleural effusions. 4. Left ventricular hypertrophy. Coronary artery calcification. Ross Arias MD Chest X-Ray 07/20/17 1626 Signed Impressions: Service Date/Time: Thursday, July 20, 2017 16:40 - CONCLUSION: Mild congestive failure bibasilar clinical changes. No pleural effusion. Cody Cardona MD FACR PE at Discharge GENERAL: This is a frail female with multiple joint deformities CARDIOVASCULAR: Regular rate and rhythm without murmurs, gallops, or rubs. RESPIRATORY: Decreased air movement on do not appreciate any Rales or rhonchi GASTROINTESTINAL: Abdomen soft, non-tender, nondistended. Normal active bowel sounds MUSCULOSKELETAL: Extremities without clubbing, cyanosis, or edema. NEURO: Alert & Oriented x4 to person, place, time, situation. Moves all ext x4 Pt update on day of discharge Patient seen today. She still feels quite dyspneic at rest. Still hypoxemic. Discharge plans discussed with patient. She does not want any aggressive care and will like to be a DNR. She is considering hospice Hospital Course Patient is a very pleasant 66-year-old female who was evaluated for lower extremity edema which was found to be related to right sided heart failure. Patient has pulmonary hypertension and emphysema along with multiple joint deformities which may represent restrictive disease. She is quite hypoxemic. She has improvement with Lasix and with oxygen. Patient does not want any aggressive care done but would like to be comfortable. Hospice consultation was obtained. Pt Condition on Discharge: Guarded Discharge Disposition: Hospice/ Home Discharge Time: > 30 minutes Discharge Instructions DIET: Follow Instructions for: As Tolerated, No Restrictions Activities you can perform: Regular-No Restrictions Latia Reynolds MD Jul 22, 2017 12:00
[2017-07-22] MEDS ORDERED: NICOTINE 14 MG/24 HR PATCH T-DERMAL ONE (20:15)
[2017-07-22] MEDS: methylPREDNISolone SOD SUCC 40 MG/1 ML VIAL IV PUSH SCH (21:00)
[2017-07-22] MEDS: BUDESONIDE-FORMOTEROL 160/4.5 MCG INHALER INH SCH (21:16)
[2017-07-22 23:29] LABS: BLOOD, URINE NEG (NEG); GLUCOSE,URINE NEG (NEG); KETONE, URINE NEG (NEG); NITRITE,URINE NEG (NEG)
[2017-07-22 23:37] LABS: URINE COLOR STRAW (YELLW/STRAW)
[2017-07-22 23:38] LABS: BACTERIA, URINE MANY /hpf; COMMENT (UR) CULTURE INDICATED; CULTURE IF INDICATED CULTURE INDICATED; RBC, URINE 0-2 /hpf (0-3); SQUAMOUS EPITHELIAL CELL URINE 0-5 /hpf (0-5)
[2017-07-23] VITALS (7 sets, daily range): BP systolic 145–162; BP diastolic 95–107; PULSE 79–85; RESP 14–20; TEMP 97.1–98.8; O2SAT 89–97
[2017-07-23] MEDS: NITROGLYCERIN 2% OINT 1 GM PACKET TOPICAL SCH ×4 (05:35→23:00)
[2017-07-23 05:52] LABS: BLOOD GAS BASE EXCESS 14.9 mmol/L (-2-2); BLOOD GAS CARBOXYHEMOGLOBIN 2.6 % (0-4); BLOOD GAS HCO3 40 mmol/L (22-26); BLOOD GAS METHEMOGLOBIN 0.8 % (0-2); BLOOD GAS O2 HGB SATURATION 92 % (90-100); BLOOD GAS OXYGEN CONTENT 12.8 Vol % (12.0-20.0); BLOOD GAS PCO2 59 mmHG (38-42); BLOOD GAS PO2 78 mmHG (61-120); BLOOD GAS TOTAL HGB 9.7 G/DL (12.0-16.0); TEMP CORR TO 98.6
[2017-07-23 05:53] LABS: DRAW SITE RT RADIAL; LITER FLOW 2 L/M; NUMBER OF ARTERIAL PUNCTURES 1; OXYGEN DEVICE NASAL CANNULA; STAT NO; ULNAR PULSE PRESENT
--- NOTE | 2017-07-23 06:50 | MB ---
cc: Melody CHOI M.D. DATE OF CONSULTATION: 07/22/2017 REASON FOR CONSULTATION: Pulmonary evaluation on a patient with chronic obstructive pulmonary disease. HISTORY OF PRESENT ILLNESS: This is a 66-hour-old lady with a history of fibromyalgia, degenerative arthritis and degenerative bone disease who was admitted with complaints of shortness of breath and leg swelling. The patient also has a history of osteoporosis, past history of seizures and hepatitis C. She has been smoking a half to one pack per day, has done so for 40 years and has been dyspneic and orthopneic and does have a cough and brings up little mucus. She denied fevers or chills or hemoptysis. She was admitted through the emergency room and also was found to have pleural effusions bilaterally and is being worked up for congestive heart failure. A CT angiogram of the chest was done which showed no evidence of pulmonary emboli but had bilateral effusions and evidence of emphysema and possible pulmonary hypertension. The patient was placed on oxygen at 3 liters and diuresed and now her O2 sats have improved but upon weaning the oxygen. She does desaturate into the 80's and may require home oxygen. PAST HISTORY 1. Has included history of COPD 2. History of chronic pain 3. Fibromyalgia 4. Degenerative arthritis 5. A history of hepatitis C 6. History of scoliosis 7. Previous history of liver disease. 8. There is a question of congestive heart failure. HABITS The patient smoked one to two packs per day has done so for 40 years. No alcohol use. FAMILY HISTORY Significant for heart disease. ALLERGIES KEFLEX ACETAMINOPHEN REVIEW OF SYSTEMS The patient has lost weight. She has joint pains, back pain. There is shortness of breath, orthopnea, leg swelling. No skin lesions, she has some anxiety attacks. PHYSICAL EXAMINATION IN GENERAL: This is a thinly built middle-aged white female, who appears emaciated. VITAL SIGNS: Blood pressure 130/80, pulse is 90, respirations of 20, temperature 97.5 HEAD, EYES, EARS, NOSE, AND THROAT: Pupils are reactive and equal. Tongue is moist. Throat was clear. Nasal mucosa injected. NECK: Supple. No venous distension. No thyromegaly or lymphadenopathy. CHEST: Kyphotic chest with diminished excursions percussion note resonant throughout. Breath sounds diminished over the periphery with occasional wheezes bilaterally. CARDIOVASCULAR SYSTEM: Heart sounds are regular S1-S2 with no murmur. No S3 or gallop. ABDOMEN: the abdomen is soft, scaphoid. No masses or organomegaly. Bowel sounds are active. EXTREMITIES: Marked deformity of the knees and ankles and knees and upper extremity joints. There is mild edema of the lower extremities. No calf tenderness. Skin was tightly stretched over the extremities. PSYCHIATRIC: The patient is alert and oriented and answers all questions appropriately. IMPRESSION 1. COPD with emphysema and acute exacerbation. 2. There is a degenerative joint disease and osteoporosis. 3. Bilateral pleural effusions. 4. Chronic back pain. 5. History of seizures. 6. Fibromyalgia. PLAN The patient will be sent for pulmonary function studies with bronchodilators. We will continue with nebulized DuoNeb solution three times daily and we will also get a blood gas study on room air. Continued on O2 at 2 liters. She may need home oxygen as well. We will start her on Symbicort 160, at 4.5 grams two puffs twice daily. The patients echocardiogram was reviewed and she might need a cardiac evaluation as well and evaluate her pulmonary hypertension. We will continue with diuretic therapy including Lasix 20 mg daily and Solu-Medrol was added 40 mg b.i.d. for 2 days. Once her pulmonary function tests are back I will review the case again. Thank you Dr. Reynolds for this consultation. MD YOMI De La O/kyle /8:33 PM /6:30 AM NISHI
[2017-07-23] MEDS: RESP: ALBUTEROL 2.5 MG/IPRATROPIUM 0.5 MG NEB (SCH) NEB ×4 (07:46→19:45)
[2017-07-23] MEDS: SODIUM CHLORIDE 0.9% FLUSH 10 ML FLUSH IV FLUSH SCH ×2 (09:00→21:05)
[2017-07-23] MEDS: BUDESONIDE-FORMOTEROL 160/4.5 MCG INHALER INH SCH ×2 (09:00→20:26)
[2017-07-23] MEDS: METOPROLOL TARTRATE 25 MG TAB PO SCH (09:00)
[2017-07-23] MEDS: REMOVE OLD PATCH T-DERMAL SCH (09:00)
[2017-07-23] MEDS: ATORVASTATIN 10 MG TAB PO SCH (09:00)
[2017-07-23] MEDS: LISINOPRIL 10 MG TAB PO SCH (09:00)
[2017-07-23] MEDS: ASPIRIN EC 325 MG TABEC PO SCH (09:00)
[2017-07-23] MEDS: methylPREDNISolone SOD SUCC 40 MG/1 ML VIAL IV PUSH SCH (09:00)
[2017-07-23] MEDS: OXYCODONE PO SCH ×2 (09:27→21:06)
[2017-07-23] MEDS: NICOTINE 14 MG/24 HR PATCH T-DERMAL SCH (09:28)
[2017-07-23] MEDS: FUROSEMIDE 40 MG/4 ML VIAL IV PUSH SCH (09:29)
[2017-07-23] MEDS: HEPARIN SODIUM - SQ 10,000 UNITS/ML VIAL SQ SCH ×2 (09:30→21:08)
[2017-07-23] MEDS: CIPROFLOXACIN 500 MG TAB PO SCH ×2 (10:30→20:26)
[2017-07-23] MEDS: LACTOBACILLUS ACIDOPHILUS TAB PO SCH ×2 (13:25→17:23)
--- NOTE | 2017-07-23 16:03 | HHI.PR ---
Subjective Remarks 66 YOWF with Sig joint deformity, wheel chair bound Had hypoxia Requires 02 Feels better No Fever Objective Vital Signs Vital Signs Date Time Temp Pulse Resp B/P (MAP) Pulse Ox O2 Delivery O2 Flow Rate FiO2 07/23/17 12:00 97.2 80 19 154/105 (121) 96 07/23/17 08:45 89 Nasal Cannula 2.00 07/23/17 08:00 97.6 79 18 154/98 (116) 92 07/23/17 00:08 98.7 83 20 162/98 (119) 96 07/22/17 20:08 98.7 103 22 194/111 (138) 94 07/22/17 19:30 98 Nasal Cannula 3.00 07/22/17 16:00 97.0 77 20 120/82 (95) 95 I/O 07/22/17 07/22/17 07/22/17 07/23/17 07/23/17 07/23/17 07:00 15:00 23:00 07:00 15:00 23:00 Intake Total 480 ml 720 ml 500 ml Output Total 1700 ml 550 ml 400 ml Balance -1220 ml 170 ml 100 ml Intake Oral 480 ml 720 ml 500 ml Output Urine Total 1700 ml 550 ml 400 ml # Voids 4 1 2 1 # Bowel Movements 0 Result Diagram: 07/21/1741907/21/17419 Objective Remarks GENERAL: Frail elderly female, NAD SKIN: Warm and dry. HEAD: Normocephalic. EYES: No scleral icterus. No injection or drainage. NECK: Supple, trachea midline. No JVD or lymphadenopathy. CARDIOVASCULAR: Regular rate and rhythm without murmurs, gallops, or rubs. RESPIRATORY: Breath sounds equal bilaterally. No accessory muscle use. GASTROINTESTINAL: Abdomen soft, non-tender, nondistended. MUSCULOSKELETAL: No cyanosis, or edema. Joint Deformities BACK: Nontender without obvious deformity. No CVA tenderness. A/P Assessment and Plan COPD Exac improved CHF PHTN Joint deformities Pl eff PLAN: Arrange home 02 DC Steroids PO Abx Aerosol nebs DC Plans underway. PFT Eric Monique MD Jul 23, 2017 16:02
--- NOTE | 2017-07-23 16:03 | HHI.PR ---
Objective Vitals Vital Signs Date Time Temp Pulse Resp B/P (MAP) Pulse Ox O2 Delivery O2 Flow Rate FiO2 07/23/17 12:00 97.2 80 19 154/105 (121) 96 07/23/17 08:45 89 Nasal Cannula 2.00 07/23/17 08:00 97.6 79 18 154/98 (116) 92 07/23/17 00:08 98.7 83 20 162/98 (119) 96 07/22/17 20:08 98.7 103 22 194/111 (138) 94 07/22/17 19:30 98 Nasal Cannula 3.00 07/22/17 16:00 97.0 77 20 120/82 (95) 95 I/O 07/22/17 07/22/17 07/22/17 07/23/17 07/23/17 07/23/17 07:00 15:00 23:00 07:00 15:00 23:00 Intake Total 480 ml 720 ml 500 ml Output Total 1700 ml 550 ml 400 ml Balance -1220 ml 170 ml 100 ml Intake Oral 480 ml 720 ml 500 ml Output Urine Total 1700 ml 550 ml 400 ml # Voids 4 1 2 1 # Bowel Movements 0 Result Diagram: 07/21/17 0420 07/21/17 0420 Procedures pft A/P Problem List: (1) Congestive heart failure ICD Code: I50.9 - Heart failure, unspecified Status: Acute (2) Pulmonary hypertension ICD Code: I27.2 - Other secondary pulmonary hypertension (3) COPD (chronic obstructive pulmonary disease) ICD Code: J44.9 - Chronic obstructive pulmonary disease, unspecified (4) Hypoxia ICD Code: R09.02 - Hypoxemia (5) Lower extremity edema ICD Code: R60.0 - Localized edema Assessment and Plan Hypoxia secondary to CHF (right sided heart failure) - she presented with pedal edema, elevated BNP, chest x-ray findings of CHF. The patient has underlying COPD having smoked tobacco since age 20, also has pulmonary hypertension. 2-D echocardiogram here showed preserved left ventricular ejection fraction, LVH, pulmonary arterial pressure 47, dilated right atrium and ventricle with moderate tricuspid valve regurgitation. Patient has been diuresis with Lasix with improvement. She is requiring oxygen 2 L via nasal cannula. The patient was educated regarding CHF, COPD and pulmonary hypertension. We will continue the patient on diuretics will switch to by mouth Lasix. Unfortunately the patient has no insurance at this time and cannot afford home oxygen. Case management and hospice following. The patient is declining Solu-Medrol and inhalers. -UTI, Escherichia coli. The patient at this time is declining Cipro, she feels antibiotics caused him any side effects. I did encourage her to take an antibiotic as not doing so could cause the UTI to progress to pyelonephritis in the bloodstream infection. Patient states she will consider it. -Chronic pain, Arthritis,Fibromyalgia -History of hepatitis C, treated in 1999 -Severe osteoporosis, Scoliosis -Chronic tobacco use -History of seizures -DVT prophylaxis with heparin subcutaneous Problem Qualifiers (1) Congestive heart failure: Qualified Codes: I50.31 - Acute diastolic (congestive) heart failure Aemrica Freedman MD Jul 23, 2017 16:03
[2017-07-23] MEDS: FUROSEMIDE 20 MG TAB PO SCH (17:23)
[2017-07-23] MEDS: POTASSIUM CHLORIDE 8 MEQ CONTROLLED RELEASE TAB PO SCH (21:00)
[2017-07-24 00:08] VITALS: BP 157/67; PULSE 90; RESP 14; TEMP 97.7; O2SAT 97
[2017-07-24] MEDS: NITROGLYCERIN 2% OINT 1 GM PACKET TOPICAL SCH ×2 (06:00→09:01)
[2017-07-24 07:41] VITALS: O2SAT 98
[2017-07-24] MEDS: RESP: ALBUTEROL 2.5 MG/IPRATROPIUM 0.5 MG NEB (SCH) NEB ×2 (07:42→14:00)
[2017-07-24] MEDS: OXYCODONE PO SCH (08:50)
[2017-07-24] MEDS: LACTOBACILLUS ACIDOPHILUS TAB PO SCH ×2 (08:51→12:57)
[2017-07-24] MEDS: HEPARIN SODIUM - SQ 10,000 UNITS/ML VIAL SQ SCH (08:51)
[2017-07-24] MEDS: REMOVE OLD PATCH T-DERMAL SCH (08:53)
[2017-07-24] MEDS: NICOTINE 14 MG/24 HR PATCH T-DERMAL SCH (08:53)
[2017-07-24] MEDS: POTASSIUM CHLORIDE 8 MEQ CONTROLLED RELEASE TAB PO SCH (09:00)
[2017-07-24] MEDS: ATORVASTATIN 10 MG TAB PO SCH (09:00)
[2017-07-24] MEDS: CIPROFLOXACIN 500 MG TAB PO SCH (09:00)
[2017-07-24] MEDS: LISINOPRIL 10 MG TAB PO SCH (09:00)
[2017-07-24] MEDS: BUDESONIDE-FORMOTEROL 160/4.5 MCG INHALER INH SCH (09:00)
[2017-07-24] MEDS: ASPIRIN EC 325 MG TABEC PO SCH (09:00)
[2017-07-24] MEDS: SODIUM CHLORIDE 0.9% FLUSH 10 ML FLUSH IV FLUSH SCH (09:00)
[2017-07-24] MEDS: FUROSEMIDE 20 MG TAB PO SCH (09:00)
[2017-07-24 09:45] VITALS: BP 146/94; PULSE 71; RESP 15; TEMP 97.1; O2SAT 95
[2017-07-24 12:30] VITALS: BP 151/97; PULSE 87; RESP 16; TEMP 98.6; O2SAT 99
--- NOTE | 2017-07-24 12:38 | HHI.PR ---
Subjective Remarks Patient denies dyspnea. The patient states she has investigated Bactrim and may be willing to take that for the UTI. Objective Vitals Vital Signs Date Time Temp Pulse Resp B/P (MAP) Pulse Ox O2 Delivery O2 Flow Rate FiO2 07/24/17 09:45 97.1 71 15 146/94 (111) 95 07/24/17 07:41 98 Nasal Cannula 3.00 07/24/17 00:08 97.7 90 14 157/67 (97) 97 07/23/17 20:08 98.8 85 14 161/107 (125) 97 07/23/17 19:45 96 Nasal Cannula 3.00 07/23/17 16:00 97.1 79 18 145/95 (112) 95 I/O 07/23/17 07/23/17 07/23/17 07/24/17 07/24/17 07/24/17 07:00 15:00 23:00 07:00 15:00 23:00 Intake Total 500 ml 240 ml Output Total 400 ml Balance 100 ml 240 ml Intake Oral 500 ml 240 ml Output Urine Total 400 ml # Voids 2 1 6 2 Result Diagram: 07/21/1741907/21/17419 Objective Remarks GENERAL: Chronically ill, frail appearing female patient. SKIN: Warm and dry. HEAD: Normocephalic. EYES: No scleral icterus. No injection or drainage. NECK: Supple, trachea midline. No JVD or lymphadenopathy. CARDIOVASCULAR: Regular rate and rhythm without murmurs, gallops, or rubs. RESPIRATORY: Breath sounds equal bilaterally. No accessory muscle use. GASTROINTESTINAL: Abdomen soft, non-tender, nondistended. EXTREMITIES: Trace pedal edema. Multiple contractures of elbows knees. NEUROLOGICAL: Awake, alert, and oriented x 3. Non-focal. Procedures pft A/P Problem List: (1) Congestive heart failure ICD Code: I50.9 - Heart failure, unspecified Status: Acute (2) Pulmonary hypertension ICD Code: I27.2 - Other secondary pulmonary hypertension (3) COPD (chronic obstructive pulmonary disease) ICD Code: J44.9 - Chronic obstructive pulmonary disease, unspecified (4) Hypoxia ICD Code: R09.02 - Hypoxemia (5) Lower extremity edema ICD Code: R60.0 - Localized edema Assessment and Plan Hypoxia secondary to CHF (right sided heart failure) - she presented with pedal edema, elevated BNP, chest x-ray findings of CHF. The patient has underlying COPD having smoked tobacco since age 20, also has pulmonary hypertension. 2-D echocardiogram here showed preserved left ventricular ejection fraction, LVH, pulmonary arterial pressure 47, dilated right atrium and ventricle with moderate tricuspid valve regurgitation. Patient has been diuresis with Lasix with improvement. She is requiring oxygen 2 L via nasal cannula. The patient was educated regarding CHF, COPD and pulmonary hypertension. We will continue the patient on diuretics will switch to by mouth Lasix. Unfortunately the patient has no insurance at this time and cannot afford home oxygen. Case management and hospice following. The patient is declining Solu-Medrol and inhalers. I do believe the patient qualifies for hospice given her advanced COPD and now cor pulmonale. Discussed with hospice nurse. -UTI, Escherichia coli. The patient at this time is declining Cipro, she feels antibiotics caused him any side effects. I did encourage her to take an antibiotic as not doing so could cause the UTI to progress to pyelonephritis in the bloodstream infection. Patient states she will consider Bactrim, so I will start that. -Chronic pain, Arthritis,Fibromyalgia -History of hepatitis C, treated in 1999 -Severe osteoporosis, Scoliosis -Chronic tobacco use -History of seizures -DVT prophylaxis with heparin subcutaneous Problem Qualifiers (1) Congestive heart failure: Qualified Codes: I50.31 - Acute diastolic (congestive) heart failure America Freedman MD Jul 24, 2017 12:38
[2017-07-24] MEDS ORDERED: SULFAMETHOXAZOLE-TRIMETHOPRIM DS 800-160 MG TAB PO SCH (13:30)
[2017-07-24] MEDS ORDERED: LISI10TA3 PO (15:30)
[2017-07-24] MEDS ORDERED: IPRAAER INH (15:30)
[2017-07-24] MEDS ORDERED: SULF1TAB23 PO (15:30)
[2017-07-24] MEDS ORDERED: LIPI10TA PO (15:30)
[2017-07-24] MEDS ORDERED: OXYGENDME NAS.CANULA (15:46)
[2017-07-24] MEDS ORDERED: SYMB160A INH (16:21)
[2017-07-24] MEDS ORDERED: FURO20TA PO (16:21)
[2017-07-24] MEDS ORDERED: KLOR8TAB PO (16:21)
--- NOTE | 2017-07-24 17:32 | HHI.PR ---
Subjective Remarks 66 YOWF with Sig joint deformity, wheel chair bound Had hypoxia Requires 02 Feels better No Fever No new complaint Objective Vital Signs Vital Signs Date Time Temp Pulse Resp B/P (MAP) Pulse Ox O2 Delivery O2 Flow Rate FiO2 07/24/17 12:30 98.6 87 16 151/97 (115) 99 07/24/17 09:45 97.1 71 15 146/94 (111) 95 07/24/17 07:41 98 Nasal Cannula 3.00 07/24/17 00:08 97.7 90 14 157/67 (97) 97 07/23/17 20:08 98.8 85 14 161/107 (125) 97 07/23/17 19:45 96 Nasal Cannula 3.00 I/O 07/23/17 07/23/17 07/23/17 07/24/17 07/24/17 07/24/17 06:59 14:59 22:59 06:59 14:59 22:59 Intake Total 500 ml 240 ml Output Total 400 ml Balance 100 ml 240 ml Intake Oral 500 ml 240 ml Output Urine Total 400 ml # Voids 2 1 6 2 Result Diagram: 07/21/1741907/21/17419 Objective Remarks GENERAL: Frail elderly female, NAD SKIN: Warm and dry. HEAD: Normocephalic. EYES: No scleral icterus. No injection or drainage. NECK: Supple, trachea midline. No JVD or lymphadenopathy. CARDIOVASCULAR: Regular rate and rhythm without murmurs, gallops, or rubs. RESPIRATORY: Breath sounds equal bilaterally. No accessory muscle use. GASTROINTESTINAL: Abdomen soft, non-tender, nondistended. MUSCULOSKELETAL: No cyanosis, or edema. Joint Deformities BACK: Nontender without obvious deformity. No CVA tenderness. A/P Assessment and Plan COPD Exac improved CHF PHTN Joint deformities Pl eff UTI PLAN: Arrange home 02 PO Abx Aerosol nebs DC Plans underway. will FU in AM Eric Monique MD Jul 24, 2017 17:32
--- NOTE | 2017-08-01 10:30 | RSPPFT ---
DATE OF PROCEDURE: 07/22/17 COMMENTS: Spirometry demonstrates an FEV1 of 0.5 at 26% of predicted, FVC of 1.5 at 62% and FEF 25-75 is 11%. Post-bronchodilator study demonstrated mild improvements in the FEF 25-75. Flow volume loops suggest severe obstruction. IMPRESSION: 1. Severe obstructive disease. 2. Minimal response to bronchodilator.
[2017-08-08 07:29] LABS: CRITICAL VALUE YES
== END 2017-07-24 19:00 | disposition left against medical advice (07) | DRG 292 ==
LOC: PHED 15:58 → PHEDA 21:38 → PH3B 23:26
PROVIDERS: ADMIT Hospitalist; ATTEND Hospitalist
DX: I50.31 Acute diastolic (congestive) heart failure (principal); J44.1 Chronic obstructive pulmonary disease with (acute) exacerbation; E87.2 Acidosis; I27.2 Other secondary pulmonary hypertension; R54 Age-related physical debility; N39.0 Urinary tract infection, site not specified; M41.9 Scoliosis, unspecified; M79.7 Fibromyalgia; R09.02 Hypoxemia; G89.29 Other chronic pain; I08.3 Combined rheumatic disorders of mitral, aortic and tricuspid valves; M81.8 Other osteoporosis without current pathological fracture; I27.81 Cor pulmonale (chronic); M19.90 Unspecified osteoarthritis, unspecified site; B96.20 Unspecified Escherichia coli [E. coli] as the cause of diseases classified elsewhere; F17.210 Nicotine dependence, cigarettes, uncomplicated; Z86.19 Personal history of other infectious and parasitic diseases; Z88.1 Allergy status to other antibiotic agents; Z88.6 Allergy status to analgesic agent; Z99.3 Dependence on wheelchair
CPT/HCPCS: 36600; 71010; 71275; 80048; 80053; 80061; 81001; 82550; 82805; 83735; 83880; 84443; 84484; 85025; 85379; 85610; 85730; 87077; 87086; 87186; 93005; 93306; 94060; 94620; 94640; 94664; 96374; J1644; J1940; Q9967